=== PATIENT | male | born 1960 | race African-American/Black ===

== ENCOUNTER 2016-11-13 15:19 | Emergency (ER) | payer SELFPAY ==
[~2016-11-13] VITALS: Ht 172.7 cm; Wt 81.3 kg
[~2016-11-13 15:19] MED LIST: HYDROCHLOROTHIA25 MG PO; REGLAN10 MG PO
[2016-11-13] MEDS ORDERED: NORCO 5/3251 TABLET PO (17:31)
[2016-11-13] MEDS ORDERED: AMOXICILLIN875 MG PO (17:31)
[2016-11-13 17:53] VITALS: BP 194/118
== END 2016-11-13 17:54 | disposition home or self-care (01) ==
LOC: EME 15:19
PROC: 0C95XZZ Drainage of Upper Gingiva, External Approach (ICD-10-PCS; principal; 2016-11-13)
DX: K04.7 Periapical abscess without sinus (principal); I10 Essential (primary) hypertension
CPT/HCPCS: 99281; 99283